=== PATIENT | male | born 1990 | race Caucasian/White ===

== ENCOUNTER 2018-04-26 17:42 | Emergency (ER) | payer MEDICAID ==
[~2018-04-26] VITALS: Ht 167.6 cm; Wt 87.0 kg
[2018-04-26 19:10] LABS: CLARITY URINE CLEAR (CLEAR); COLOR URINE YELLOW (YELLOW); KETONES URINE NEGATIVE (NEGATIVE); LEUKOCYTE ESTERASE URINE NEGATIVE (NEGATIVE); NITRITE URINE NEGATIVE (NEGATIVE); OCCULT BLOOD URINE NEGATIVE (NEGATIVE); PROTEIN URINE NEGATIVE (NEGATIVE); SPECIFIC GRAVITY URINE 1.006 (1.005-1.030); UROBILINOGEN URINE 0.2 E.U./dL (0.2-1.0)
[2018-04-26 19:14] LABS: BASOPHILS % 0.5 % (0.0-2.0); HEMATOCRIT. 44.8 % (42.0-52.0); HEMOGLOBIN. 15.4 g/dL (14.0-18.0); LYMPHOCYTES % 23.7 % (20.0-50.0); MEAN CORPUSCULAR HEMOGLOBIN 31.2 pg (28.0-32.0); MEAN CORPUSCULAR VOLUME 90.6 fL (80.0-94.0); MONOCYTES % 6.9 % (2.0-8.0); NEUTROPHILS % 68.9 % (40.0-76.0); PLATELET 371 x1000/uL (130-400); RED BLOOD CELL COUNT 4.94 mill/uL (4.7-6.1); RED CELL DISTRIBUTION WIDTH 13.8 % (11.6-14.6)
[2018-04-26 19:30] LABS: CHLORIDE 102 mEq/L (98-107)
[2018-04-26 19:34] LABS: ETHANOL BLOOD < 10 mg/dL
[2018-04-26 19:37] LABS: *AMPHETAMINES SCREEN URINE NEGATIVE (NEGATIVE); *BARBITURATES SCREEN URINE NEGATIVE (NEGATIVE); *BENZODIAZEPINES SCREEN URINE NEGATIVE (NEGATIVE); *COCAINE SCREEN URINE NEGATIVE (NEGATIVE)
[2018-04-26 19:38] LABS: CANNABINOID URINE SCREEN NEGATIVE (NEGATIVE); METHADONE URINE SCREEN NEGATIVE (NEGATIVE); OPIATES URINE SCREEN NEGATIVE (NEGATIVE); PHENCYCLIDINE URINE SCREEN NEGATIVE (NEGATIVE)
[2018-04-26 19:55] VITALS: BP 132/71
== END 2018-04-26 20:08 | disposition home or self-care (01) ==
LOC: ER 17:42
DX: R14.2 Eructation (principal); F31.9 Bipolar disorder, unspecified; F20.9 Schizophrenia, unspecified; F12.10 Cannabis abuse, uncomplicated
CPT/HCPCS: 36415; 80053; 80305; 81003; 85025; 99284; G0482

== ENCOUNTER 2018-06-26 17:34 | Emergency (ER) | payer MEDICAID ==
[~2018-06-26] VITALS: Ht 175.3 cm; Wt 80.0 kg
[2018-06-26] MEDS ORDERED: SODIUM CHLORIDE 0.9% 1,000 ML IV ONE (19:34)
[2018-06-26 20:36] LABS: BASOPHILS % 0.5 % (0.0-2.0); HEMATOCRIT. 43.5 % (42.0-52.0); HEMOGLOBIN. 14.8 g/dL (14.0-18.0); LYMPHOCYTES % 34.6 % (20.0-50.0); MEAN CORPUSCULAR VOLUME 91.1 fL (80.0-94.0); MEAN PLATELET VOLUME 7.2 fl (7.4-10.4); MONOCYTES % 8.7 % (2.0-8.0); NEUTROPHILS % 56.2 % (40.0-76.0); PLATELET 319 x1000/uL (130-400); RED BLOOD CELL COUNT 4.78 mill/uL (4.7-6.1); RED CELL DISTRIBUTION WIDTH 14.2 % (11.6-14.6)
[2018-06-26 20:45] LABS: INR 1.1; PARTIAL THROMBOPLASTIN TIME 27.1 sec (23.4-31.0); PROTHROMBIN TIME 10.8 sec (9.1-11.1)
[2018-06-26 20:46] LABS: CHLORIDE 107 mEq/L (98-107); ETHANOL BLOOD < 10 mg/dL
[2018-06-26 21:47] VITALS: BP 139/86
[2018-06-26 21:57] LABS: *AMPHETAMINES SCREEN URINE NEGATIVE (NEGATIVE); CANNABINOID URINE SCREEN NEGATIVE (NEGATIVE); OPIATES URINE SCREEN NEGATIVE (NEGATIVE); PHENCYCLIDINE URINE SCREEN NEGATIVE (NEGATIVE)
[2018-06-26 21:58] LABS: *BARBITURATES SCREEN URINE NEGATIVE (NEGATIVE); *BENZODIAZEPINES SCREEN URINE NEGATIVE (NEGATIVE); *COCAINE SCREEN URINE NEGATIVE (NEGATIVE); METHADONE URINE SCREEN NEGATIVE (NEGATIVE)
== END 2018-06-27 00:39 | disposition home or self-care (01) ==
LOC: ER 17:34
DX: R53.1 Weakness (principal); E86.0 Dehydration; F31.9 Bipolar disorder, unspecified; F20.9 Schizophrenia, unspecified; Z87.891 Personal history of nicotine dependence
CPT/HCPCS: 36415; 80053; 80305; 84443; 84484; 85025; 85610; 85730; 99284; G0482; J7030

== ENCOUNTER 2022-11-25 18:08 | Emergency (ER) | payer MEDICAID, MEDICARE ==
[~2022-11-25] VITALS: Ht 180.3 cm; Wt 99.0 kg
[2022-11-25 18:16] VITALS: BP 156/86
== END 2022-11-25 21:38 | disposition left against medical advice (07) ==
LOC: ER 18:08
DX: Z53.21 Procedure and treatment not carried out due to patient leaving prior to being seen by health care provider (principal)
CPT/HCPCS: 99281

== ENCOUNTER 2023-03-05 10:46 | Emergency (ER) | payer MEDICAID, OTHER ==
[~2023-03-05] VITALS: Ht 175.3 cm; Wt 95.0 kg
[2023-03-05 10:50] VITALS: BP 130/79; TEMP 98.6; O2SAT 97
[2023-03-05 10:51] VITALS: PULSE 96; RESP 16
[2023-03-05] MEDS ORDERED: MECLIZINE 25MG TABLET PO ONE (11:15)
[2023-03-05 11:28] LABS: BASOPHILS % 0.5 % (0.0-2.0); HEMATOCRIT. 41.9 % (42.0-52.0); HEMOGLOBIN. 14.4 g/dL (14.0-18.0); LYMPHOCYTES % 36.7 % (20.0-50.0); MONOCYTES % 7.2 % (2.0-8.0); NEUTROPHILS % 55.6 % (40.0-76.0); PLATELET 395 x1000/uL (130-400); RED BLOOD CELL COUNT 4.65 mill/uL (4.7-6.1); RED CELL DISTRIBUTION WIDTH 13.7 % (11.6-14.6)
[2023-03-05 11:35] LABS: CHLORIDE 109 mEq/L (98-107)
[2023-03-05] MEDS ORDERED: MECL-159 MT (14:43)
[2023-03-05 15:21] LABS: CLARITY URINE CLEAR (CLEAR); COLOR URINE YELLOW (YELLOW); KETONES URINE TRACE (NEGATIVE); LEUKOCYTE ESTERASE URINE NEGATIVE (NEGATIVE); NITRITE URINE NEGATIVE (NEGATIVE); OCCULT BLOOD URINE NEGATIVE (NEGATIVE); PROTEIN URINE NEGATIVE (NEGATIVE); SPECIFIC GRAVITY URINE 1.024 (1.005-1.030); UROBILINOGEN URINE 0.2 E.U./dL (0.2-1.0)
[2023-03-05 15:53] LABS: *AMPHETAMINES SCREEN URINE NEGATIVE (NEGATIVE); *BARBITURATES SCREEN URINE NEGATIVE (NEGATIVE); *BENZODIAZEPINES SCREEN URINE NEGATIVE (NEGATIVE); *COCAINE SCREEN URINE NEGATIVE (NEGATIVE); CANNABINOID URINE SCREEN NEGATIVE (NEGATIVE); METHADONE URINE SCREEN NEGATIVE (NEGATIVE); OPIATES URINE SCREEN NEGATIVE (NEGATIVE); PHENCYCLIDINE URINE SCREEN NEGATIVE (NEGATIVE)
== END 2023-03-05 16:58 | disposition home or self-care (01) ==
LOC: ER 10:46
DX: R42 Dizziness and giddiness (principal); Z86.59 Personal history of other mental and behavioral disorders
CPT/HCPCS: 36415; 71045; 80053; 80305; 81003; 84484; 85025; 93005; 99285; J8597

== ENCOUNTER 2023-07-06 21:49 | Emergency (ER) | payer OTHER ==
[~2023-07-06] VITALS: Ht 175.3 cm; Wt 91.0 kg
[~2023-07-06 21:49] MED LIST: MECL-299 MT
[2023-07-06 21:56] VITALS: BP 127/76; PULSE 81; RESP 18; TEMP 98.3; O2SAT 99
== END 2023-07-07 00:11 | disposition left against medical advice (07) ==
LOC: ER 22:02
DX: F41.9 Anxiety disorder, unspecified (principal); Z53.21 Procedure and treatment not carried out due to patient leaving prior to being seen by health care provider
CPT/HCPCS: 99281

== ENCOUNTER 2023-07-07 15:19 | Emergency (ER) | payer OTHER ==
[~2023-07-07] VITALS: Ht 175.3 cm; Wt 99.0 kg
[2023-07-07 15:39] VITALS: BP 134/91; RESP 16; TEMP 98.9; O2SAT 99
[2023-07-07 15:43] VITALS: PULSE 88
[2023-07-07 16:38] LABS: BASOPHILS % 0.3 % (0.0-2.0); HEMATOCRIT. 43.5 % (42.0-52.0); HEMOGLOBIN. 14.5 g/dL (14.0-18.0); LYMPHOCYTES % 17.5 % (20.0-50.0); MEAN CORPUSCULAR HEMOGLOBIN 30.3 pg (28.0-32.0); MEAN CORPUSCULAR HGB CONC 33.4 g/dL (31.0-37.0); MEAN CORPUSCULAR VOLUME 90.9 fL (80.0-94.0); MEAN PLATELET VOLUME 7.2 fl (7.4-10.4); NEUTROPHILS % 76.2 % (40.0-76.0); PLATELET 419 x1000/uL (130-400); RED BLOOD CELL COUNT 4.79 mill/uL (4.7-6.1); RED CELL DISTRIBUTION WIDTH 13.8 % (11.6-14.6); WHITE BLOOD COUNT 8.1 x1000/uL (4.5-11.0)
[2023-07-07 16:50] LABS: CHLORIDE 107 mEq/L (98-107); INDEX HEMOLYSI 1 (1-3); INDEX ICTERIC 1 (1-4); INDEX LIPEMIC 1 (1-3); SODIUM 139 mEq/L (136-145)
[2023-07-07 16:58] LABS: ALANINE AMINOTRANSFERASE 27 IU/L (13-61); ALBUMIN 4.3 g/dL (3.4-5.0); ASPARTATE AMINOTRANSFERASE 19 IU/L (15-37); BILIRUBIN TOTAL 0.4 mg/dL (0.1-1.0); CALCIUM 9.1 mg/dL (8.5-10.1); CARBON DIOXIDE 28 mEq/L (21-32); GLUCOSE 111 mg/dL (70-105); PROTEIN TOTAL 8.1 g/dL (6.0-8.3); UREA NITROGEN BLOOD 15 mg/dL (7-21)
== END 2023-07-07 16:00 | disposition left against medical advice (07) ==
LOC: ER 15:19
DX: R10.9 Unspecified abdominal pain (principal); Z53.21 Procedure and treatment not carried out due to patient leaving prior to being seen by health care provider
CPT/HCPCS: 36415; 80053; 85025; 99281

== ENCOUNTER 2023-07-15 15:16 | Emergency (ER) | payer OTHER ==
[~2023-07-15] VITALS: Ht 182.9 cm; Wt 91.0 kg
[2023-07-15 15:31] VITALS: BP 123/73; PULSE 91; RESP 18; TEMP 97.4; O2SAT 99
[2023-07-15 16:30] LABS: HEMATOCRIT 43.3 % (42.0-52.0); HEMOGLOBIN 14.6 g/dL (14.0-18.0); MEAN CORPUSCULAR HEMOGLOBIN 31.1 pg (28.0-32.0); MEAN CORPUSCULAR HGB CONC 33.6 g/dL (31.0-37.0); MEAN CORPUSCULAR VOLUME 92.5 fL (80.0-94.0); PLATELET 475 x1000/uL (130-400); RED BLOOD CELL COUNT 4.68 mill/uL (4.7-6.1); RED CELL DISTRIBUTION WIDTH 13.6 % (11.6-14.6); WHITE BLOOD COUNT 7.9 x1000/uL (4.5-11.0)
[2023-07-15 16:47] LABS: ALANINE AMINOTRANSFERASE 26 IU/L (10-49); ALBUMIN 4.5 g/dL (3.2-4.8); ASPARTATE AMINOTRANSFERASE 19 IU/L (<34); BILIRUBIN TOTAL 0.4 mg/dL (0.1-1.0); CARBON DIOXIDE 28 mEq/L (21-32); CHLORIDE 106 mEq/L (98-107); CREATININE 1.1 mg/dL (0.6-1.3); GLUCOSE 101 mg/dL (70-105); POTASSIUM 3.7 mEq/L (3.5-5.1); PROTEIN TOTAL 6.9 g/dL (6.0-8.3); SODIUM 142 mEq/L (136-145); TROPONIN I HIGH SENSITIVITY 5 ng/L (3.0-53); UREA NITROGEN BLOOD 10 mg/dL (9-23)
[2023-07-15 17:39] LABS: CLARITY URINE CLEAR (CLEAR); COLOR URINE YELLOW (YELLOW); GLUCOSE URINE NEGATIVE (NEGATIVE); KETONES URINE NEGATIVE (NEGATIVE); LEUKOCYTE ESTERASE URINE NEGATIVE (NEGATIVE); NITRITE URINE NEGATIVE (NEGATIVE); OCCULT BLOOD URINE NEGATIVE (NEGATIVE); PH URINE 5.5 (4.5-8.0); PROTEIN URINE TRACE (NEGATIVE); SPECIFIC GRAVITY URINE 1.035 (1.005-1.030)
[2023-07-15 17:44] LABS: WBC URINE 0-2 /hpf (0-2); YEAST URINE NONE SEEN
[2023-07-15 18:15] LABS: BACTERIA URINE 1+; MUCUS URINE 1+ /lpf (NONE/TRACE); RBC URINE 0-2 /hpf (0-2); SQUAMOUS EPITHELIAL CELL URINE RARE /lpf (RARE/1+)
[2023-07-15] MEDS ORDERED: HYDR-3992 MT (20:02)
== END 2023-07-15 21:09 | disposition home or self-care (01) ==
LOC: ER 15:16
DX: R11.0 Nausea (principal); R07.89 Other chest pain; F12.10 Cannabis abuse, uncomplicated; F15.10 Other stimulant abuse, uncomplicated
CPT/HCPCS: 36415; 71045; 80053; 81003; 84484; 85027; 93005; 99285

== ENCOUNTER 2023-08-14 13:37 | Emergency (ER) | payer OTHER ==
[~2023-08-14] VITALS: Ht 175.3 cm; Wt 90.0 kg
[~2023-08-14 13:37] MED LIST changes: +HYDR-3992 MT
[2023-08-14 13:42] VITALS: O2SAT 98
[2023-08-14] MEDS ORDERED: LACTATED RINGERS 1,000 ML IV SCH (14:00)
[2023-08-14 14:13] VITALS: BP 134/82; PULSE 102; RESP 15; TEMP 97.9
[2023-08-14 14:36] LABS: BASOPHILS % 0.2 % (0.0-2.0); HEMATOCRIT. 43.8 % (42.0-52.0); LYMPHOCYTES % 8.4 % (20.0-50.0); MEAN CORPUSCULAR HEMOGLOBIN 31.1 pg (28.0-32.0); MEAN CORPUSCULAR HGB CONC 34.3 g/dL (31.0-37.0); MEAN CORPUSCULAR VOLUME 90.5 fL (80.0-94.0); MEAN PLATELET VOLUME 7.1 fl (7.4-10.4); MONOCYTES % 5.7 % (2.0-8.0); NEUTROPHILS % 85.7 % (40.0-76.0); PLATELET 374 x1000/uL (130-400); RED BLOOD CELL COUNT 4.84 mill/uL (4.7-6.1); RED CELL DISTRIBUTION WIDTH 14.1 % (11.6-14.6); WHITE BLOOD COUNT 9.6 x1000/uL (4.5-11.0)
[2023-08-14 14:48] LABS: ALANINE AMINOTRANSFERASE 32 IU/L (10-49); ALBUMIN 4.4 g/dL (3.2-4.8); ASPARTATE AMINOTRANSFERASE 21 IU/L (<34); BILIRUBIN TOTAL 0.4 mg/dL (0.1-1.0); CALCIUM 9.1 mg/dL (8.7-10.4); CARBON DIOXIDE 29 mEq/L (21-32); CHLORIDE 103 mEq/L (98-107); CREATININE 1.1 mg/dL (0.6-1.3); GLUCOSE 106 mg/dL (70-105); POTASSIUM 3.8 mEq/L (3.5-5.1); PROTEIN TOTAL 7.6 g/dL (6.0-8.3); SODIUM 140 mEq/L (136-145); UREA NITROGEN BLOOD 14 mg/dL (9-23)
[2023-08-14 15:02] LABS: TROPONIN I HIGH SENSITIVITY < 4 ng/L (3.0-53)
== END 2023-08-14 15:47 | disposition left against medical advice (07) ==
LOC: ER 13:44
DX: F41.9 Anxiety disorder, unspecified (principal); R42 Dizziness and giddiness; F15.10 Other stimulant abuse, uncomplicated; F12.10 Cannabis abuse, uncomplicated
CPT/HCPCS: 80053; 85025; 85379; 84484; 36415; 71045; 93005; 99285; Z7610 ×3

== ENCOUNTER 2023-08-17 08:14 | Emergency (ER) | payer OTHER ==
[~2023-08-17] VITALS: Ht 175.3 cm; Wt 90.0 kg
[2023-08-17 08:40] VITALS: BP 126/88; PULSE 100; RESP 18; TEMP 98; O2SAT 99
[2023-08-17] MEDS ORDERED: VIST25 MT (11:14)
[2023-08-17] MEDS ORDERED: HYDROXYZINE 25MG TABLET PO ONE (11:15)
== END 2023-08-17 11:52 | disposition home or self-care (01) ==
LOC: ER 08:14
DX: R42 Dizziness and giddiness (principal); F20.9 Schizophrenia, unspecified; F31.9 Bipolar disorder, unspecified
CPT/HCPCS: 99283

== ENCOUNTER 2023-09-26 20:29 | Emergency (ER) | payer MEDICAID, OTHER ==
[~2023-09-26] VITALS: Ht 175.3 cm; Wt 90.0 kg
[~2023-09-26 20:29] MED LIST changes: +VIST25 MT
[2023-09-26 20:57] LABS: BASOPHILS % 0.6 % (0.0-2.0); HEMOGLOBIN. 14.1 g/dL (14.0-18.0); LYMPHOCYTES % 35.1 % (20.0-50.0); MEAN CORPUSCULAR HEMOGLOBIN 30.4 pg (28.0-32.0); MEAN CORPUSCULAR HGB CONC 33.6 g/dL (31.0-37.0); MEAN CORPUSCULAR VOLUME 90.4 fL (80.0-94.0); MEAN PLATELET VOLUME 6.9 fl (7.4-10.4); MONOCYTES % 7.5 % (2.0-8.0); NEUTROPHILS % 56.8 % (40.0-76.0); PLATELET 419 x1000/uL (130-400); RED BLOOD CELL COUNT 4.64 mill/uL (4.7-6.1); RED CELL DISTRIBUTION WIDTH 13.9 % (11.6-14.6)
[2023-09-26 21:11] LABS: AMMONIA < 10 uMol/L (<32)
[2023-09-26 21:15] VITALS: BP 136/92; PULSE 76; RESP 18; TEMP 97.9; O2SAT 98
[2023-09-26 21:15] LABS: ACETAMINOPHEN < 2 ug/mL (10-30); ALANINE AMINOTRANSFERASE 37 IU/L (10-49); ALBUMIN 4.4 g/dL (3.2-4.8); ASPARTATE AMINOTRANSFERASE 25 IU/L (<34); BILIRUBIN TOTAL 0.2 mg/dL (0.1-1.0); CARBON DIOXIDE 27 mEq/L (21-32); CHLORIDE 107 mEq/L (98-107); CREATININE 1.2 mg/dL (0.6-1.3); GLUCOSE 120 mg/dL (70-105); POTASSIUM 4.4 mEq/L (3.5-5.1); PROTEIN TOTAL 7.5 g/dL (6.0-8.3); SODIUM 140 mEq/L (136-145); THYROID STIMULATING HORMONE 5.23 uIU/mL (0.55-4.78); UREA NITROGEN BLOOD 13 mg/dL (9-23)
[2023-09-26 21:20] LABS: ETHANOL BLOOD < 10 mg/dL (<10)
== END 2023-09-27 07:35 | disposition left against medical advice (07) ==
LOC: ER 20:35
DX: R44.0 Auditory hallucinations (principal); F31.9 Bipolar disorder, unspecified
CPT/HCPCS: 36415; 80053; 80307; 80320; 80329; 82140; 84443; 85025; 99283; G0480

== ENCOUNTER 2023-11-10 21:12 | Emergency (ER) | payer MEDICAID ==
[~2023-11-10] VITALS: Ht 175.3 cm; Wt 88.0 kg
[2023-11-10 21:50] VITALS: BP 133/80; PULSE 82; RESP 18; TEMP 98.4; O2SAT 99
[2023-11-11] MEDS ORDERED: DICY20TA2 PO (06:40)
[2023-11-11] MEDS ORDERED: OMEP20CA14 PO (06:40)
== END 2023-11-10 22:26 | disposition left against medical advice (07) ==
LOC: ER 21:40
DX: R10.9 Unspecified abdominal pain (principal); Z53.21 Procedure and treatment not carried out due to patient leaving prior to being seen by health care provider
CPT/HCPCS: 99281

== ENCOUNTER 2023-11-11 04:06 | Emergency (ER) | payer MEDICAID ==
[~2023-11-11] VITALS: Ht 175.3 cm; Wt 91.0 kg
[2023-11-11 04:10] VITALS: O2SAT 100
[2023-11-11 04:32] LABS: BASOPHILS % 0.9 % (0.0-2.0); HEMATOCRIT. 43.9 % (42.0-52.0); HEMOGLOBIN. 14.7 g/dL (14.0-18.0); LYMPHOCYTES % 27.1 % (20.0-50.0); MEAN CORPUSCULAR HEMOGLOBIN 30.6 pg (28.0-32.0); MEAN CORPUSCULAR HGB CONC 33.6 g/dL (31.0-37.0); MEAN CORPUSCULAR VOLUME 91.1 fL (80.0-94.0); MEAN PLATELET VOLUME 6.8 fl (7.4-10.4); MONOCYTES % 8.2 % (2.0-8.0); NEUTROPHILS % 63.8 % (40.0-76.0); PLATELET 467 x1000/uL (130-400); RED BLOOD CELL COUNT 4.82 mill/uL (4.7-6.1); RED CELL DISTRIBUTION WIDTH 14.3 % (11.6-14.6); WHITE BLOOD COUNT 11.2 x1000/uL (4.5-11.0)
[2023-11-11 04:45] LABS: ALANINE AMINOTRANSFERASE 53 IU/L (10-49); ASPARTATE AMINOTRANSFERASE 35 IU/L (<34); BILIRUBIN TOTAL 0.5 mg/dL (0.1-1.0); CARBON DIOXIDE 29 mEq/L (21-32); CHLORIDE 107 mEq/L (98-107); CREATININE 1.2 mg/dL (0.6-1.3); GLUCOSE 113 mg/dL (70-105); POTASSIUM 3.3 mEq/L (3.5-5.1); PROTEIN TOTAL 8.2 g/dL (6.0-8.3); SODIUM 141 mEq/L (136-145); UREA NITROGEN BLOOD 15 mg/dL (9-23)
[2023-11-11 05:12] LABS: CLARITY URINE CLOUDY (CLEAR); COLOR URINE YELLOW (YELLOW); GLUCOSE URINE NEGATIVE (NEGATIVE); KETONES URINE NEGATIVE (NEGATIVE); LEUKOCYTE ESTERASE URINE NEGATIVE (NEGATIVE); NITRITE URINE NEGATIVE (NEGATIVE); OCCULT BLOOD URINE NEGATIVE (NEGATIVE); PROTEIN URINE NEGATIVE (NEGATIVE); SPECIFIC GRAVITY URINE 1.023 (1.005-1.030); UROBILINOGEN URINE 0.2 E.U./dL (0.2-1.0)
[2023-11-11 05:37] LABS: AMORPHOUS SEDIMENT URINE 2+ /lpf; BACTERIA URINE 2+; RBC URINE NONE SEEN /hpf (0-2); SQUAMOUS EPITHELIAL CELL URINE FEW /lpf (RARE/1+); WBC URINE NONE SEEN /hpf (0-2)
[2023-11-11] MEDS ORDERED: DICY20TA2 PO (06:40)
[2023-11-11] MEDS ORDERED: OMEP20CA14 PO (06:40)
[2023-11-11] MEDS: DICYCLOMINE 10 MG/5 ML ORAL SYR PO STA (06:42)
[2023-11-11] MEDS: ONDANSETRON 4MG ODT PO STA (06:42)
[2023-11-11 06:44] VITALS: BP 130/79; PULSE 85; RESP 13; TEMP 98
== END 2023-11-11 07:06 | disposition home or self-care (01) ==
LOC: ER 04:06
DX: K29.70 Gastritis, unspecified, without bleeding (principal); Z86.59 Personal history of other mental and behavioral disorders
CPT/HCPCS: 80053; 81003; 83690; 85025; 36415; 93005; 99284; Q0162; Z7610 ×2

== ENCOUNTER 2024-02-13 19:25 | Emergency (ER) | payer MEDICAID ==
[~2024-02-13] VITALS: Ht 175.3 cm; Wt 90.0 kg
[~2024-02-13 19:25] MED LIST changes: +DICY20TA2 PO; +OMEP20CA14 PO
[2024-02-13 19:26] VITALS: BP 134/80; PULSE 94; RESP 16; TEMP 97.7; O2SAT 95
[2024-02-13] MEDS ORDERED: ONDANSETRON 4MG ODT PO ONE (20:00)
[2024-02-13] MEDS ORDERED: FAMOTIDINE 20MG TABLET PO ONE (20:00)
[2024-02-13 20:21] LABS: BASOPHILS % 0.7 % (0.0-2.0); HEMOGLOBIN. 14.4 g/dL (14.0-18.0); LYMPHOCYTES % 31.2 % (20.0-50.0); MEAN CORPUSCULAR HEMOGLOBIN 30.6 pg (28.0-32.0); MEAN CORPUSCULAR HGB CONC 33.4 g/dL (31.0-37.0); MEAN CORPUSCULAR VOLUME 91.6 fL (80.0-94.0); MONOCYTES % 5.5 % (2.0-8.0); NEUTROPHILS % 62.6 % (40.0-76.0); PLATELET 410 x1000/uL (130-400); WHITE BLOOD COUNT 6.4 x1000/uL (4.5-11.0)
[2024-02-13 20:31] LABS: CARBON DIOXIDE 26 mEq/L (21-32); CHLORIDE 107 mEq/L (98-107); SODIUM 140 mEq/L (136-145)
[2024-02-13 20:36] LABS: CREATININE 1.3 mg/dL (0.6-1.3)
[2024-02-13 20:37] LABS: GLUCOSE 136 mg/dL (70-105); UREA NITROGEN BLOOD 11 mg/dL (9-23)
[2024-02-13 20:38] LABS: ALANINE AMINOTRANSFERASE 76 IU/L (10-49); ASPARTATE AMINOTRANSFERASE 42 IU/L (<34)
[2024-02-13 20:39] LABS: ALBUMIN 4.3 g/dL (3.2-4.8); BILIRUBIN TOTAL 0.3 mg/dL (0.1-1.0); PROTEIN TOTAL 6.9 g/dL (6.0-8.3)
[2024-02-13 20:51] LABS: BILIRUBIN DIRECT < 0.1 mg/dL (<=3.0)
== END 2024-02-13 22:59 | disposition left against medical advice (07) ==
LOC: ER 19:25
DX: K29.70 Gastritis, unspecified, without bleeding (principal); F41.9 Anxiety disorder, unspecified; F20.9 Schizophrenia, unspecified
CPT/HCPCS: 36415; 80048; 80076; 85025; 99283

== ENCOUNTER 2024-02-15 19:05 | Emergency (ER) | payer MEDICAID ==
[~2024-02-15] VITALS: Ht 172.7 cm; Wt 80.0 kg
[2024-02-15 19:07] VITALS: O2SAT 97
[2024-02-15 21:13] LABS: HEMATOCRIT. 46.7 % (42.0-52.0); HEMOGLOBIN. 15.7 g/dL (14.0-18.0); LYMPHOCYTES % 19.5 % (20.0-50.0); MEAN CORPUSCULAR HEMOGLOBIN 30.9 pg (28.0-32.0); MEAN CORPUSCULAR HGB CONC 33.6 g/dL (31.0-37.0); MEAN CORPUSCULAR VOLUME 91.8 fL (80.0-94.0); MEAN PLATELET VOLUME 7.1 fl (7.4-10.4); MONOCYTES % 7.1 % (2.0-8.0); NEUTROPHILS % 72.4 % (40.0-76.0); PLATELET 443 x1000/uL (130-400); RED BLOOD CELL COUNT 5.09 mill/uL (4.7-6.1); RED CELL DISTRIBUTION WIDTH 14.1 % (11.6-14.6); WHITE BLOOD COUNT 5.5 x1000/uL (4.5-11.0)
[2024-02-15 21:19] LABS: CARBON DIOXIDE 29 mEq/L (21-32); CHLORIDE 106 mEq/L (98-107); POTASSIUM 4.2 mEq/L (3.5-5.1); SODIUM 143 mEq/L (136-145)
[2024-02-15 21:20] LABS: CALCIUM 9.7 mg/dL (8.7-10.4)
[2024-02-15 21:24] LABS: CREATININE 1.3 mg/dL (0.6-1.3)
[2024-02-15 21:25] LABS: ETHANOL BLOOD < 10 mg/dL (<10); GLUCOSE 92 mg/dL (70-105); INR 0.9; PARTIAL THROMBOPLASTIN TIME 23.3 sec (23.4-31.0); PROTHROMBIN TIME 10.3 sec (9.6-11.0); UREA NITROGEN BLOOD 10 mg/dL (9-23)
[2024-02-15 21:26] LABS: ALANINE AMINOTRANSFERASE 74 IU/L (10-49); ASPARTATE AMINOTRANSFERASE 38 IU/L (<34)
[2024-02-15 21:27] LABS: ALBUMIN 4.7 g/dL (3.2-4.8); BILIRUBIN DIRECT 0.1 mg/dL (<=3.0); BILIRUBIN TOTAL 0.5 mg/dL (0.1-1.0); PROTEIN TOTAL 7.8 g/dL (6.0-8.3)
[2024-02-15] MEDS ORDERED: DICYCLOMINE 10 MG/5 ML ORAL SYR PO STA (21:43)
[2024-02-15 22:56] VITALS: BP 133/87; PULSE 65; RESP 16; TEMP 98.5
[2024-02-15] MEDS: ONDANSETRON HCL 4MG/2ML INJ IV STA (22:56)
[2024-02-15] MEDS: SODIUM CHLORIDE 0.9% 1,000 ML IV ONE (22:57)
[2024-02-15] MEDS: ONDANSETRON 4MG ODT PO STA (22:57)
[2024-02-15] MEDS: MAGNESIUM/ALUMINUM HYDROXIDE/SIMETHICONE 30ML UDC PO STA (22:57)
[2024-02-15] MEDS: DICYCLOMINE HCL 10MG CAPSULE PO NR (22:57)
== END 2024-02-15 22:58 | disposition home or self-care (01) ==
LOC: ER 19:05
DX: K80.80 Other cholelithiasis without obstruction (principal); R10.11 Right upper quadrant pain; F41.9 Anxiety disorder, unspecified; F20.9 Schizophrenia, unspecified; F10.20 Alcohol dependence, uncomplicated; Y90.0 Blood alcohol level of less than 20 mg/100 ml
CPT/HCPCS: 80076; 80048; 80320; 83690; 85025; 85610; 85730; 86850; 86900; 86901; 36415; 76705; 99284; J7030; G0480

== ENCOUNTER 2024-04-12 19:41 | Emergency (ER) | payer MEDICAID ==
[~2024-04-12] VITALS: Ht 175.3 cm; Wt 91.0 kg
[2024-04-12 19:47] VITALS: BP 140/86; PULSE 93; RESP 14; TEMP 98.4; O2SAT 99
[2024-04-12 20:14] LABS: CLARITY URINE CLEAR (CLEAR); COLOR URINE YELLOW (YELLOW); GLUCOSE URINE NEGATIVE (NEGATIVE); KETONES URINE TRACE (NEGATIVE); LEUKOCYTE ESTERASE URINE NEGATIVE (NEGATIVE); NITRITE URINE NEGATIVE (NEGATIVE); OCCULT BLOOD URINE NEGATIVE (NEGATIVE); PH URINE 6.5 (4.5-8.0); PROTEIN URINE NEGATIVE (NEGATIVE); SPECIFIC GRAVITY URINE 1.023 (1.005-1.030); UROBILINOGEN URINE 0.2 E.U./dL (0.2-1.0)
[2024-04-12 20:31] LABS: BASOPHILS % 0.4 % (0.0-2.0); HEMATOCRIT. 42.6 % (42.0-52.0); HEMOGLOBIN. 14.5 g/dL (14.0-18.0); LYMPHOCYTES % 21.5 % (20.0-50.0); MEAN CORPUSCULAR HEMOGLOBIN 31.1 pg (28.0-32.0); MEAN CORPUSCULAR VOLUME 91.5 fL (80.0-94.0); MEAN PLATELET VOLUME 7.1 fl (7.4-10.4); NEUTROPHILS % 72.1 % (40.0-76.0); PLATELET 414 x1000/uL (130-400); RED BLOOD CELL COUNT 4.65 mill/uL (4.7-6.1); RED CELL DISTRIBUTION WIDTH 13.7 % (11.6-14.6); WHITE BLOOD COUNT 6.3 x1000/uL (4.5-11.0)
[2024-04-12 20:37] LABS: CHLORIDE 108 mEq/L (98-107); POTASSIUM 3.5 mEq/L (3.5-5.1); SODIUM 140 mEq/L (136-145)
[2024-04-12 20:38] LABS: CALCIUM 9.4 mg/dL (8.7-10.4); CARBON DIOXIDE 28 mEq/L (21-32)
[2024-04-12 20:43] LABS: CREATININE 1.2 mg/dL (0.6-1.3); GLUCOSE 124 mg/dL (70-105); UREA NITROGEN BLOOD 10 mg/dL (9-23)
[2024-04-12 20:45] LABS: ALANINE AMINOTRANSFERASE 29 IU/L (10-49); ALBUMIN 4.7 g/dL (3.2-4.8); ASPARTATE AMINOTRANSFERASE 20 IU/L (<34); BILIRUBIN TOTAL 0.3 mg/dL (0.1-1.0); PROTEIN TOTAL 7.5 g/dL (6.0-8.3)
[2024-04-12 21:55] LABS: BILIRUBIN DIRECT < 0.1 mg/dL (<=3.0)
== END 2024-04-12 22:11 | disposition left against medical advice (07) ==
LOC: ER 19:41
DX: F41.9 Anxiety disorder, unspecified (principal); Z53.21 Procedure and treatment not carried out due to patient leaving prior to being seen by health care provider
CPT/HCPCS: 36415; 80048; 80076; 81003; 85025

== ENCOUNTER 2024-04-12 23:51 | Emergency (ER) | payer MEDICAID ==
[~2024-04-12] VITALS: Ht 177.8 cm; Wt 91.0 kg
[2024-04-13 00:07] VITALS: TEMP 97.9; O2SAT 97
[2024-04-13 00:42] LABS: BASOPHILS % 0.6 % (0.0-2.0); HEMATOCRIT. 41.2 % (42.0-52.0); LYMPHOCYTES % 28.9 % (20.0-50.0); MEAN CORPUSCULAR HEMOGLOBIN 31.2 pg (28.0-32.0); MEAN CORPUSCULAR VOLUME 91.8 fL (80.0-94.0); MONOCYTES % 5.9 % (2.0-8.0); NEUTROPHILS % 64.6 % (40.0-76.0); PLATELET 384 x1000/uL (130-400); RED BLOOD CELL COUNT 4.48 mill/uL (4.7-6.1); WHITE BLOOD COUNT 7.1 x1000/uL (4.5-11.0)
[2024-04-13 01:00] LABS: CARBON DIOXIDE 29 mEq/L (21-32); CHLORIDE 108 mEq/L (98-107); POTASSIUM 3.4 mEq/L (3.5-5.1); SODIUM 141 mEq/L (136-145)
[2024-04-13 01:01] LABS: CALCIUM 9.4 mg/dL (8.7-10.4)
[2024-04-13 01:05] LABS: CREATININE 1.1 mg/dL (0.6-1.3); GLUCOSE 115 mg/dL (70-105)
[2024-04-13 01:06] LABS: UREA NITROGEN BLOOD 11 mg/dL (9-23)
[2024-04-13 01:07] LABS: ACETAMINOPHEN < 2 ug/mL (10-30); ALANINE AMINOTRANSFERASE 26 IU/L (10-49); ALBUMIN 4.4 g/dL (3.2-4.8); ASPARTATE AMINOTRANSFERASE 19 IU/L (<34)
[2024-04-13 01:08] LABS: BILIRUBIN DIRECT 0.1 mg/dL (<=3.0); BILIRUBIN TOTAL 0.4 mg/dL (0.1-1.0)
[2024-04-13 01:18] LABS: ETHANOL BLOOD < 10 mg/dL (<10)
[2024-04-13 02:58] LABS: CLARITY URINE CLOUDY (CLEAR); COLOR URINE YELLOW (YELLOW); GLUCOSE URINE NEGATIVE (NEGATIVE); KETONES URINE TRACE (NEGATIVE); LEUKOCYTE ESTERASE URINE NEGATIVE (NEGATIVE); NITRITE URINE NEGATIVE (NEGATIVE); OCCULT BLOOD URINE NEGATIVE (NEGATIVE); PH URINE 5.5 (4.5-8.0); PROTEIN URINE NEGATIVE (NEGATIVE); SPECIFIC GRAVITY URINE 1.031 (1.005-1.030); UROBILINOGEN URINE 0.2 E.U./dL (0.2-1.0)
[2024-04-13 03:02] LABS: *AMPHETAMINES SCREEN URINE NEGATIVE (NEGATIVE); *BARBITURATES SCREEN URINE NEGATIVE (NEGATIVE); *BENZODIAZEPINES SCREEN URINE NEGATIVE (NEGATIVE); *COCAINE SCREEN URINE NEGATIVE (NEGATIVE); CANNABINOID URINE SCREEN NEGATIVE (NEGATIVE); ECSTASY MDMA SCREEN URINE NEGATIVE (NEGATIVE); METHADONE URINE SCREEN NEGATIVE (NEGATIVE); OPIATES URINE SCREEN NEGATIVE (NEGATIVE); PHENCYCLIDINE URINE SCREEN NEGATIVE (NEGATIVE)
[2024-04-13 03:40] LABS: BACTERIA URINE NONE SEEN; RBC URINE NONE SEEN /hpf (0-2); SQUAMOUS EPITHELIAL CELL URINE NONE SEEN /lpf (RARE/1+); WBC URINE 0-2 /hpf (0-2)
[2024-04-13 10:59] VITALS: BP 117/77; PULSE 73; RESP 14; O2SAT 98
== END 2024-04-13 11:10 | disposition home or self-care (01) ==
LOC: ER 23:51
DX: R45.851 Suicidal ideations (principal); F41.9 Anxiety disorder, unspecified; F20.9 Schizophrenia, unspecified; F10.20 Alcohol dependence, uncomplicated; Z79.899 Other long term (current) drug therapy; Y90.0 Blood alcohol level of less than 20 mg/100 ml
CPT/HCPCS: 36415; 80048; 80076; 80305; 80307; 80320; 80329; 81003; 85025; 99285; G0480

== ENCOUNTER 2024-04-15 17:49 | Emergency (ER) | payer MEDICAID ==
[~2024-04-15] VITALS: Ht 180.3 cm; Wt 79.0 kg
[2024-04-15 17:53] VITALS: O2SAT 97
[2024-04-15 18:26] LABS: BASOPHILS % 0.4 % (0.0-2.0); HEMATOCRIT. 43.4 % (42.0-52.0); HEMOGLOBIN. 14.6 g/dL (14.0-18.0); LYMPHOCYTES % 17.5 % (20.0-50.0); MEAN CORPUSCULAR HEMOGLOBIN 30.9 pg (28.0-32.0); MEAN CORPUSCULAR HGB CONC 33.5 g/dL (31.0-37.0); MEAN CORPUSCULAR VOLUME 92.3 fL (80.0-94.0); MEAN PLATELET VOLUME 7.1 fl (7.4-10.4); MONOCYTES % 5.6 % (2.0-8.0); NEUTROPHILS % 76.5 % (40.0-76.0); PLATELET 409 x1000/uL (130-400); RED CELL DISTRIBUTION WIDTH 13.9 % (11.6-14.6); WHITE BLOOD COUNT 6.2 x1000/uL (4.5-11.0)
[2024-04-15 18:31] LABS: CHLORIDE 107 mEq/L (98-107); POTASSIUM 3.6 mEq/L (3.5-5.1); SODIUM 140 mEq/L (136-145)
[2024-04-15 18:32] LABS: CARBON DIOXIDE 26 mEq/L (21-32)
[2024-04-15 18:33] LABS: CALCIUM 9.2 mg/dL (8.7-10.4)
[2024-04-15 18:37] LABS: CREATININE 1.3 mg/dL (0.6-1.3); GLUCOSE 109 mg/dL (70-105)
[2024-04-15 18:38] LABS: UREA NITROGEN BLOOD 14 mg/dL (9-23)
[2024-04-15] MEDS: MORPHINE SULFATE 4 MG/ML INJ (FOR IV/IM USE) IV STA (18:43)
[2024-04-15] MEDS: ONDANSETRON HCL 4MG/2ML INJ IV STA (18:43)
[2024-04-15 18:50] LABS: PROTHROMBIN TIME 10.9 sec (9.6-11.0)
[2024-04-15 21:03] VITALS: BP 123/74; PULSE 63; RESP 13; TEMP 37.00296; O2SAT 97
[2024-04-15 21:12] LABS: ALANINE AMINOTRANSFERASE 27 IU/L (10-49); ALBUMIN 4.7 g/dL (3.2-4.8); ASPARTATE AMINOTRANSFERASE 22 IU/L (<34); BILIRUBIN DIRECT 0.1 mg/dL (<=3.0); BILIRUBIN TOTAL 0.4 mg/dL (0.1-1.0); PROTEIN TOTAL 7.1 g/dL (6.0-8.3)
== END 2024-04-15 21:28 | disposition home or self-care (01) ==
LOC: ER 17:49
DX: K80.20 Calculus of gallbladder without cholecystitis without obstruction (principal); Z86.59 Personal history of other mental and behavioral disorders
CPT/HCPCS: 99285; 96374; 76705; 96375; 80076; 80048; 83690; 85025; 85610; 36415; J2405; J2270

== ENCOUNTER 2024-06-06 20:09 | Emergency (ER) | payer MEDICAID ==
[~2024-06-06] VITALS: Ht 180.3 cm; Wt 90.0 kg
[2024-06-06 20:11] VITALS: BP 133/86; PULSE 86; RESP 18; TEMP 97.9; O2SAT 98
[2024-06-06] MEDS: LORAZEPAM 0.5MG TABLET PO ONE (21:53)
== END 2024-06-06 21:58 | disposition home or self-care (01) ==
LOC: ER 20:09
DX: F41.9 Anxiety disorder, unspecified (principal); R06.02 Shortness of breath; F20.9 Schizophrenia, unspecified; Z79.899 Other long term (current) drug therapy
CPT/HCPCS: 71045; 93005; 99283

== ENCOUNTER 2024-12-31 09:58 | Emergency (ER) | payer MEDICAID ==
[~2024-12-31] VITALS: Ht 175.3 cm; Wt 90.0 kg
[2024-12-31 09:59] VITALS: O2SAT 99
[2024-12-31 10:02] VITALS: BP 130/76; PULSE 82; RESP 16; TEMP 36.8; O2SAT 98
[2024-12-31 10:32] LABS: BASOPHILS % 0.7 % (0.0-2.0); HEMATOCRIT. 43.9 % (42.0-52.0); HEMOGLOBIN. 14.9 g/dL (14.0-18.0); LYMPHOCYTES % 35.1 % (20.0-50.0); MEAN CORPUSCULAR HEMOGLOBIN 30.7 pg (28.0-32.0); MEAN CORPUSCULAR VOLUME 90.3 fL (80.0-94.0); MEAN PLATELET VOLUME 6.6 fl (7.4-10.4); MONOCYTES % 8.3 % (2.0-8.0); NEUTROPHILS % 55.9 % (40.0-76.0); PLATELET 414 x1000/uL (130-400); RED BLOOD CELL COUNT 4.87 mill/uL (4.7-6.1); RED CELL DISTRIBUTION WIDTH 14.4 % (11.6-14.6); WHITE BLOOD COUNT 4.8 x1000/uL (4.5-11.0)
[2024-12-31 10:40] LABS: CHLORIDE 106 mEq/L (98-107); SODIUM 141 mEq/L (136-145)
[2024-12-31 10:41] LABS: CALCIUM 9.5 mg/dL (8.7-10.4); CARBON DIOXIDE 29 mEq/L (21-32)
[2024-12-31 10:46] LABS: CREATININE 1.1 mg/dL (0.6-1.3); ETHANOL BLOOD < 10 mg/dL (<10); GLUCOSE 98 mg/dL (70-105); UREA NITROGEN BLOOD 12 mg/dL (9-23)
[2024-12-31 10:48] LABS: ALANINE AMINOTRANSFERASE 30 IU/L (10-49); ALBUMIN 4.8 g/dL (3.2-4.8); ASPARTATE AMINOTRANSFERASE 22 IU/L (<34); BILIRUBIN DIRECT 0.2 mg/dL (<=3.0); BILIRUBIN TOTAL 0.7 mg/dL (0.1-1.0); PROTEIN TOTAL 7.6 g/dL (6.0-8.3)
[2024-12-31] MEDS: FAMOTIDINE 20MG TABLET PO ONE (11:11)
[2024-12-31] MEDS: MAGNESIUM/ALUMINUM HYDROXIDE/SIMETHICONE 30ML UDC PO STA (11:11)
[2024-12-31] MEDS: ONDANSETRON 4MG ODT PO STA (11:11)
== END 2024-12-31 11:15 | disposition home or self-care (01) ==
LOC: ER 09:58
DX: K29.70 Gastritis, unspecified, without bleeding (principal); F41.9 Anxiety disorder, unspecified; Z79.899 Other long term (current) drug therapy; Z86.59 Personal history of other mental and behavioral disorders
CPT/HCPCS: 80076; 80048; 80320; 83690; 85025; 36415; 99283; Q0162; G0480

== ENCOUNTER 2025-02-26 12:23 | Emergency (ER) | payer MEDICAID ==
[~2025-02-26] VITALS: Ht 175.3 cm; Wt 91.0 kg
[2025-02-26 12:38] VITALS: BP 146/89; PULSE 93; RESP 20; TEMP 37; O2SAT 99
== END 2025-02-26 13:46 | disposition left against medical advice (07) ==
LOC: ER 13:35
DX: R10.9 Unspecified abdominal pain (principal); F41.9 Anxiety disorder, unspecified; F20.9 Schizophrenia, unspecified; Z53.21 Procedure and treatment not carried out due to patient leaving prior to being seen by health care provider

== ENCOUNTER 2025-07-24 22:17 | Emergency (ER) | payer MEDICAID ==
[~2025-07-24] VITALS: Ht 175.3 cm; Wt 86.0 kg
[2025-07-24 22:23] VITALS: O2SAT 98
[2025-07-24 23:12] LABS: HEMATOCRIT. 44.1 % (42.0-52.0); HEMOGLOBIN. 14.7 g/dL (14.0-18.0); MEAN PLATELET VOLUME 6.7 fl (7.4-10.4); PLATELET 382 x1000/uL (130-400); RED BLOOD CELL COUNT 4.83 mill/uL (4.7-6.1); RED CELL DISTRIBUTION WIDTH 13.5 % (11.6-14.6)
[2025-07-24 23:25] LABS: LYMPHOCYTES % MANUAL 10.0 % (20.0-50.0); MONOCYTES % MANUAL 6.0 % (2.0-8.0); NEUTROPHILS % MANUAL 84.0 % (45.0-75.0); PLATELET ESTIMATE NORMAL
[2025-07-24 23:30] LABS: CREATININE 1.2 mg/dL (0.6-1.3); UREA NITROGEN BLOOD 12 mg/dL (9-23)
[2025-07-24 23:31] LABS: TROPONIN I HIGH SENSITIVITY < 4 ng/L (3.0-53)
[2025-07-24] MEDS: MAGNESIUM/ALUMINUM HYDROXIDE/SIMETHICONE 30ML UDC PO ONE (23:31)
[2025-07-24] MEDS: ACETAMINOPHEN 500MG TABLET PO ONE (23:31)
[2025-07-24] MEDS: FAMOTIDINE 20MG TABLET PO ONE (23:31)
[2025-07-24 23:32] LABS: ASPARTATE AMINOTRANSFERASE 18 IU/L (<34); BILIRUBIN DIRECT 0.2 mg/dL (<=3.0); BILIRUBIN TOTAL 0.7 mg/dL (0.1-1.0); PROTEIN TOTAL 6.9 g/dL (6.0-8.3)
[2025-07-24] MEDS: VISCOUS LIDOCAINE 2% 15 ML UDC MM ONE (23:32)
[2025-07-24 23:53] LABS: CLARITY URINE CLEAR (CLEAR); COLOR URINE YELLOW (YELLOW); GLUCOSE URINE NEGATIVE (NEGATIVE); KETONES URINE NEGATIVE (NEGATIVE); LEUKOCYTE ESTERASE URINE NEGATIVE (NEGATIVE); NITRITE URINE NEGATIVE (NEGATIVE); OCCULT BLOOD URINE NEGATIVE (NEGATIVE); PH URINE 6.5 (4.5-8.0); PROTEIN URINE 1+ (NEGATIVE); SPECIFIC GRAVITY URINE 1.025 (1.005-1.030); UROBILINOGEN URINE 0.2 E.U./dL (0.2-1.0)
[2025-07-25 00:51] VITALS: TEMP 37.1
[2025-07-25] MEDS ORDERED: FAMO-135 MT (02:28)
[2025-07-25 04:13] VITALS: BP 101/61; PULSE 73; RESP 10; O2SAT 98
[2025-07-25 05:05] LABS: RBC URINE NONE SEEN /hpf (0-2); WBC URINE 0-2 /hpf (0-2)
[2025-07-25 05:06] LABS: BACTERIA URINE NONE SEEN; SQUAMOUS EPITHELIAL CELL URINE NONE SEEN /lpf (RARE/1+)
== END 2025-07-25 04:20 | disposition home or self-care (01) ==
LOC: ER 22:17 → CMPBEDREQ 07-26 10:47
DX: K29.70 Gastritis, unspecified, without bleeding (principal); R53.1 Weakness; R11.2 Nausea with vomiting, unspecified; F20.9 Schizophrenia, unspecified; F41.9 Anxiety disorder, unspecified; Z87.19 Personal history of other diseases of the digestive system; Z79.899 Other long term (current) drug therapy
CPT/HCPCS: 36415; 74176; 80048; 80076; 81003; 83735; 84484; 85025; 93005; 99284